=== PATIENT | male | born 1965 | race African-American/Black ===

== ENCOUNTER 2020-03-07 15:02 | Emergency (ER) | payer MEDICARE ==
[~2020-03-07] VITALS: Ht 194.3 cm; Wt 161.4 kg
[2020-03-07 16:00] VITALS: BP 172/94
--- NOTE | 2020-03-07 16:52 | PHYS DOC ---
Past Medical History Past Medical History: CAD, Hypertension (NABIL LI APRN) Past Surgical History: Knee Replacement, Pacemaker (NABIL LI APRN) Smoking Status: Current Every Day Smoker Alcohol Use: Rarely Drug Use: None (NABIL LI APRN) General Adult EDM: Chief Complaint: LOWER EXTREMITY SWELLING HPI: HPI: Patient is a 55 year old male who presents with just drove up Friday from [facility] to visit his mother and on Friday he went to bend over to fiber picker his keys off the floor and felt a pop in his lower back and had some sharp pain there for about 30 minutes. He states that the pain then went away and he began having bilateral behind the leg sharp shooting pains. He states he then noticed that his left leg was swelling up. He states that leg is always a little bit more swollen than the right leg but states that is not usually this swollen. He states he does not have any pain unless he is up and walking. He states he has some tingling in his bilateral toes. Patient currently has no pain sitting but when he is standing to 10 out of 10. Patient is not on a blood thinner. Patient has a history of DVT, hypertension, defibrillator left chest, left knee replacement, smoker, CAD. (NABIL LI PALLIATIVE SENIOR NP) Review of Systems: Review of Systems: Constitutional: Denies fever or chills. [] Eyes: Denies change in visual acuity. [] HENT: Denies nasal congestion or sore throat. [] Respiratory: Denies cough or shortness of breath. [] Cardiovascular: Denies chest pain or + left lower leg 3+. [] GI: Denies abdominal pain, nausea, vomiting, bloody stools or diarrhea. [] : Denies dysuria. [] Musculoskeletal: Denies back pain or joint pain. +Bilateral back of lower leg sharp shooting pains. [] Integument: Denies rash. [] Neurologic: Denies headache, focal weakness or sensory changes. [] Endocrine: Denies polyuria or polydipsia. [] Lymphatic: Denies swollen glands. [] Psychiatric: Denies depression or anxiety. [] (NABIL LI APRN) Heart Score: Risk Factors: Risk Factors: DM, Current or recent (<one month) smoker, HTN, HLP, family history of CAD, obesity. Risk Scores: Score 0 - 3: 2.5% MACE over next 6 weeks - Discharge Home Score 4 - 6: 20.3% MACE over next 6 weeks - Admit for Clinical Observation Score 7 - 10: 72.7% MACE over next 6 weeks - Early Invasive Strategies (NABIL LI APRN) Allergies: Allergies: Allergies Coded Allergies Type Severity Reaction Last Updated Verified No Known Drug Allergies 04/08/15 No (NABIL LI APRN) Physical Exam: PE: Constitutional: Well developed, well nourished, no acute distress, non-toxic appearance. [] HENT: Normocephalic, atraumatic, bilateral external ears normal, oropharynx moist, no oral exudates, nose normal. [] Eyes: PERRLA, EOMI, conjunctiva normal, no discharge. [] Neck: Normal range of motion, no tenderness, supple, no stridor. [] Cardiovascular:Heart rate regular rhythm, no murmur [] Lungs & Thorax: Bilateral breath sounds clear to auscultation [] Abdomen: Bowel sounds normal, soft, no tenderness, no masses, no pulsatile mass es. [] Skin: Warm, dry, no erythema, no rash. [] Back: No tenderness, no CVA tenderness. [] Extremities: No tenderness, no cyanosis, no clubbing, ROM intact, left lower leg 3+ and right lower leg 2+ edema. [] Neurologic: Alert and oriented X 3, normal motor function, normal sensory function, no focal deficits noted. [] Psychologic: Affect normal, judgement normal, mood normal. [] (NABIL LI APRN) EKG: EKG: [] (NABIL LI APRN) Radiology/Procedures: Radiology/Procedures: [] (SIERRA TUCSONNABIL AGUILAR APRN) Course & Med Decision Making: Course & Med Decision Making Pertinent Labs and Imaging studies reviewed. (See chart for details) See HPI. Ambulatory with a steady gait. Speaks in full complete sentences. Alert and oriented x4. Denies chest pain, shortness of breath, headache, dizziness, syncope, focal weakness, vision changes abdominal pain, nausea, vomiting, diarrhea, fever, cough. Left leg is 3+ swollen compared to the right leg. He states he does have Lasix at home that at times he takes if he gets too swollen. Lungs are clear to auscultation all lobes. Denies loss of bowel bladder. Skin is pink warm and dry. Cap refill less than 2 seconds. A pedal pulse in the left foot could not be felt due to swelling. Right foot has a good pedal pulse. Patient states that his mom discovered surgery and he does not have time for all this. He states that he is leaving AMA. Patient is educated that he could have a clot in his leg that can travel to his lung or his heart over his brain and he can have a stroke or heart attack and . Patient also on notify that the CT scan is important to make sure there is nothing seriously wrong with his back since he heard a pop. Patient is educated that due to him leaving there is a risk of or disability. Patient states his understanding. [] (NABIL LI APRN) Dragon Disclaimer: Dragon Disclaimer: This electronic medical record was generated, in whole or in part, using a voice recognition dictation system. (NABIL LI APRN) Departure Departure Impression: Primary Impression: Left leg swelling Additional Impressions: Low back pain Qualified Codes: M54.42 - Lumbago with sciatica, left side; M54.41 - Lumbago with sciatica, right side Sciatica Qualified Codes: M54.31 - Sciatica, right side; M54.32 - Sciatica, left side Disposition: 07 AMA/ELOPED/LWBS Condition: STABLE Referrals: NO PCP (PCP) Attending Signature Attending Signature I have reviewed the PA/ADJUNCT INSTRUCTOR's note and plan of care. I was available for consultation as needed during the patient's visit in the emergency department. I agree with the clinical impression, plan, and disposition. (HORTENCIA COSBY DO) NABIL LI APRN Mar 07, 2020 16:52 HORTENCIA COSBY DO Mar 07, 2020 18:46
== END 2020-03-07 17:07 | disposition left against medical advice (07) ==
LOC: ER 15:02
DX: M54.41 Lumbago with sciatica, right side (principal); M54.42 Lumbago with sciatica, left side; I10 Essential (primary) hypertension; I25.10 Atherosclerotic heart disease of native coronary artery without angina pectoris; F17.200 Nicotine dependence, unspecified, uncomplicated; Z86.718 Personal history of other venous thrombosis and embolism; Z95.810 Presence of automatic (implantable) cardiac defibrillator
CPT/HCPCS: 99281